=== PATIENT | male | born 1965 | race African-American/Black ===

== ENCOUNTER 2016-09-05 16:21 | Emergency (ER) | payer BC, MEDICAID ==
[2016-09-05 16:32] VITALS: RESP 16
--- NOTE | 2016-09-05 17:15 | EDPHY ---
H & P Stated Complaint: slipped on ice last night hit head/bruno today Time Seen by Provider: 09/05/16 17:06 HPI/ROS: CHIEF COMPLAINT: Headache, occipital skull pain following mechanical fall HISTORY OF PRESENT ILLNESS: The patient presents to the ED with a persistent severe occipital headache and occipital scalp pain following a mechanical fall last night. The patient slipped and fell while walking on ice. There was unknown loss of consciousness. The patient has had no vomiting. He denies neck pain, numbness, weakness, back pain, difficulty breathing or other concerns. The patient reports no significant past medical history. He is not anticoagulated. REVIEW OF SYSTEMS: A comprehensive 10 point review of systems is otherwise negative aside from elements mentioned in the history of present illness. Source: Patient Exam Limitations: No limitations - Personal History Current Tetanus/Diphtheria Vaccine: Yes - Medical/Surgical History Hx Asthma: No Hx Chronic Respiratory Disease: No Hx Diabetes: No Hx Cardiac Disease: No Hx Renal Disease: No Hx Cirrhosis: No Hx Alcoholism: No Hx HIV/AIDS: No Hx Splenectomy or Spleen Trauma: No Other PMH: denies - Social History Smoking Status: Never smoked - Physical Exam Exam: General Appearance: Alert, no distress Head: Tenderness to palpation in the occipital scalp, small hematoma less than 1 cm in size Eyes: Pupils equal, round, reactive ENT, Mouth: No hemotympanum, no oral trauma Neck: Nontender, trachea midline Respiratory: No chest wall tender, subcutaneous air, lungs clear bilaterally Cardiovascular: Regular rate and rhythm Abdomen: Abdomen is soft and nontender, pelvis stable Skin: No lacerations, No abrasion Back: No midline T/L/S pain Extremities: Nontender, full range of motion Neurological: A&Ox3, normal motor function, normal sensory exam Constitutional: Initial Vital Signs Temperature (C) 36.7 C 09/05/16 16:29 Heart Rate 72 09/05/16 16:29 Respiratory Rate 16 09/05/16 16:29 Blood Pressure 150/83 H 09/05/16 16:29 O2 Sat (%) 98 09/05/16 16:29 O2 Delivery Mode Room Air Allergies/Adverse Reactions: No Known Allergies Allergy (Verified 09/05/16 16:28) Home Medications: Medication Instructions Recorded NK [No Known Home Meds] 09/05/16 Medical Decision Making - Diagnostics Imaging: CT head without contrast: Negative for intracranial hemorrhage or skull fracture. Images reviewed by myself and discussed with radiologist. ED Course/Re-evaluation: The patient presents to the ED with a severe headache following a mechanical fall on ice. The patient does have a small occipital hematoma. Based upon his complaint of a severe headache, a CT scan of the brain was ordered without contrast which demonstrates no evidence of a skull fracture or intracranial hemorrhage. The patient was re-evaluated informed of the results of the CT scan. At this point time he has no symptoms of a significant concussion. The patient will be discharged home with a prescription for pain medications as well as anti emetics. He has been given the number of our on-call concussion specialist for any unimproved symptoms. The patient has no evidence of an additional traumatic injury. His cervical spine has been cleared via nexus criteria. Differential Diagnosis: Differential diagnosis considered includes intracranial hemorrhage, cervical spine fracture, concussion Departure - Departure Disposition: Home, Routine, Self-Care Clinical Impression: Concussion, Contusion of scalp Condition: Good Instructions: Concussion (ED) Additional Instructions: 1. Take Ibuprofen or Motrin 600 mg by mouth three times a day. 2. [place] as needed for severe pain. 3. Please follow up with our concussion specialist for any unimproved symptoms past 3-5 days. 4. Please return to the ED for markedly worsening symptoms, vomiting, numbness, weakness or other concerns. Referrals: Arleen Napier MD [Medical Doctor] - As per Instructions
--- NOTE | 2016-09-05 17:36 | CT ---
CT Brain (Without Contrast) at 1725 hours History: Headache, head trauma, slipped and fall on ice, hit back of head. Comparison: None. Technique: Axial computed tomographic images of the brain without contrast. Dose reduction technique s were utilized. Findings: Ventricles, cisterns, and sulci are normal without atrophy, hydrocephalus, midline shift/h erniation, or epidural/subdural hematomas. No acute intraparenchymal hemorrhage, definite infarct, or mass effect. Bone windows demonstrate no displaced fractures. Paranasal sinuses and mastoid air cell s are clear. No epidural or subdural hematoma. No skull fracture. Minimal posterior scalp soft tissue swelling. Impression: 1. Posterior scalp soft tissue swelling. 2. No evidence of skull fracture. 3. No epidural or subdural hematoma. Findings and recommendations discussed with Emergency Department physician, Dr. Narinder Zepeda at 1730 hour, today. Final report concurs with initial preliminary interpretation.
[2016-09-05 18:08] VITALS: BP 143/78; PULSE 81; TEMP 99; O2SAT 97
== END 2016-09-05 18:00 | disposition home or self-care (01) ==
DX: S06.0X0A Concussion without loss of consciousness, initial encounter (principal); S00.03XA Contusion of scalp, initial encounter; W00.0XXA Fall on same level due to ice and snow, initial encounter; Y93.01 Activity, walking, marching and hiking

== ENCOUNTER 2016-11-27 12:50 | Emergency (ER) | payer OTHER, BC, MEDICAID ==
--- NOTE | 2016-11-27 13:39 | EDPHY ---
H & P Time Seen by Provider: 11/27/16 13:28 HPI/ROS: CHIEF COMPLAINT: Left foot pain and paresthesia HISTORY OF PRESENT ILLNESS: 51-year-old male sustained a work-related crush injury to his left foot a few days ago. He was seen at [facility], had negative x-rays and was told to follow up if you developed symptoms of possible compartment syndrome. He notes development of decreased sensation in his foot. He is still unable to bear full weight on the area. Denies discoloration beyond some localized ecchymosis. He notes immediate decreased sensation when the incident happened As well. However this seemed to come back after a period of time. he was not given a splint. He was given crutches at that time PHYSICAL EXAM (Prior to examination, patient consented to physical exam, hands were washed and my usual and customary physical exam procedures followed) 1) GENERAL: Well-developed, well-nourished, alert and oriented. Appears to be in no acute distress. 2) HEAD: Normocephalic 3) HEENT: Pupils equal, round, reactive to light bilaterally. 4) LUNGS: Breathing comfortably. 5) MUSCULOSKELETAL: proximal tibia and fibula nontender .5th MT nontender negative [place] test, His compartments of the foot are soft. Dorsiflexion plantar flexion , supination pronation,elicit no pain. 6) SKIN: Violaceous discoloration in the dependent aspect of his is posterior foot. He is tender to palpation mid foot. Soft tissue swelling is noted to the midfoot and the ankle with no ankle pain. He has brisk capillary refill. 7) VASCULAR: DP,PT pulses and cap refill present and brisk DIFFERENTIAL DIAGNOSIS: in no particular order including but not limited to fracture, sprain, compartment syndrome Procedure: Splint A [place] boot splint was applied by ER heavy line technician. After application of the splint I returned and re-examined the patient. The splint was adequately immobilizing the joint and distal to the splint the patient's circulation and sensation were intact. Patient shows no signs of compartment syndrome. Was given orthopedic precautions. Smoking Status: Never smoked Constitutional: Initial Vital Signs Temperature (C) 36.6 C 11/27/16 12:56 Heart Rate 83 11/27/16 12:56 Respiratory Rate 18 11/27/16 12:56 Blood Pressure 138/84 H 11/27/16 12:56 O2 Sat (%) 99 11/27/16 12:56 O2 Delivery Mode Room Air Allergies/Adverse Reactions: No Known Allergies Allergy (Verified 11/27/16 12:55) Home Medications: Medication Instructions Recorded NK [No Known Home Meds] 11/27/16 MDM/Departure - MDM Imaging Results: Imaging Impressions Foot X-Ray 11/27/16 13:36 Impression: Mild degenerative change first metatarsophalangeal joint. Soft tissue swelling. No evidence for acute fracture. Images reviewed by myself ED Course/Re-evaluation: Patient was re-evaluated with serial exams. He notes paresthesia in his feet, expressed concerns about possible compartment syndrome. On exam he has brisk pulses and capillary refill, normal color ( beyond localized ecchymosis) normal temperature, soft compartments and no pain with range of motion. therefore think that compartment syndrome is less than likely in this patient at this time. Recommended continued elevation and follow up with work comp provider in 1 day. He has also been given the name of local television agent for further evaluation. However recommended she speak with his work comp provider 1st. He feels comfortable with this plan usual customary orthopedic and compartment syndrome precautions instructions provided to him. All questions and concerns addressed by myself - Depart Disposition: Home, Routine, Self-Care Clinical Impression: Crush injury of left foot Qualifiers: Encounter type: initial encounter Qualified Code(s): S97.82XA - Crushing injury of left foot, initial encounter Condition: Good Instructions: Foot Contusion (ED), Foot Sprain (ED) Additional Instructions: Return to the ER immediately if you experience discoloration, have worsening pain, numbness, tingling, or any other symptoms that concern you. If you received x-rays in the emergency department today, be advised, that ligamentous , tendon, muscular, and other non-bony injury cannot be fully ruled out. Try to keep your affected extremity elevated above the level of your chest, and keep cold packs on the affected area, for the next 48 hours. Stand Alone Forms: Work Comp Follow Up Referrals: Senthil Mccabe DPM [Doctor of Podiatric Medicine] - 1 day without fail ( Recommend you follow up with your work comp provider 1st)
[2016-11-27 14:20] VITALS: BP 120/81; PULSE 71; RESP 20; TEMP 97.7; O2SAT 96
== END 2016-11-27 14:18 | disposition home or self-care (01) ==
DX: S97.82XA Crushing injury of left foot, initial encounter (principal); X58.XXXA Exposure to other specified factors, initial encounter; Y92.69 Other specified industrial and construction area as the place of occurrence of the external cause; Y99.8 Other external cause status; Y93.89 Activity, other specified
CPT/HCPCS: L4386